=== PATIENT | female | born 1940 | race American Indian/Alaskan Native ===

== ENCOUNTER 2021-12-10 08:46 | Emergency (ER) | payer OTHER ==
[~2021-12-10] VITALS: Ht 165.1 cm; Wt 127.0 kg
[2021-12-10] MEDS ORDERED: MORPHINE SULFATE 4 MG/ML CPJ (NOT FOR IM USE) IV ONE ×2 (09:00→11:30)
[2021-12-10 09:15] LABS: BASOPHILS % 0.5 % (0.0-2.0); EOSINOPHILS % 0.6 % (0.0-5.0); HEMATOCRIT. 34.7 % (42.0-52.0); LYMPHOCYTES % 15.2 % (20.0-50.0); MEAN CORPUSCULAR HEMOGLOBIN 28.8 pg (28.0-32.0); MEAN CORPUSCULAR VOLUME 91.3 fL (80.0-94.0); MEAN PLATELET VOLUME 7.8 fl (7.4-10.4); MONOCYTES % 2.9 % (2.0-8.0); NEUTROPHILS % 80.8 % (40.0-76.0); PLATELET 186 x1000/uL (130-400); RED BLOOD CELL COUNT 3.81 mill/uL (4.7-6.1); RED CELL DISTRIBUTION WIDTH 17.2 % (11.6-14.6)
[2021-12-10] MEDS ORDERED: SODIUM CHLORIDE 0.9% 1,000 ML IV ONE (09:15)
[2021-12-10 09:28] LABS: CHLORIDE 109 mEq/L (98-107)
[2021-12-10] MEDS ORDERED: PHYTONADIONE 10 MG in DEXTROSE 5% WATER 50 ML SUBCUT ONE (09:30)
[2021-12-10 09:32] LABS: PROTHROMBIN TIME 70.7 sec (9.6-11.0)
[2021-12-10 09:38] LABS: INR 7.8
[2021-12-10] MEDS ORDERED: PHYTONADIONE 10 MG in DEXTROSE 5% WATER 50 ML IV NR (09:45)
[2021-12-10] MEDS ORDERED: HUMAN PROTHROMBIN COMPLX (PCC) 500 UNITS VIAL IV ONE (09:45)
[2021-12-10] MEDS ORDERED: ONDANSETRON HCL 4MG/2ML INJ IV ONE (11:30)
[2021-12-10 11:42] LABS: HEMATOCRIT 40.3 % (36.0-48.0); HEMOGLOBIN 12.4 g/dL (12.0-16.0)
[2021-12-10] MEDS ORDERED: IOHEXOL-300 100 ML BOTTLE ONE (11:58)
[2021-12-10 14:10] VITALS: BP 109/67
== END 2021-12-10 14:11 | disposition short-term general hospital (02) ==
LOC: EDSEX 08:46 → ER 10:37 → CANBEDREQ 16:35
DX: S22.41XA Multiple fractures of ribs, right side, initial encounter for closed fracture (principal); W18.39XA Other fall on same level, initial encounter; Y93.89 Activity, other specified; Y92.89 Other specified places as the place of occurrence of the external cause; Y99.8 Other external cause status; J94.2 Hemothorax; R09.02 Hypoxemia; E78.00 Pure hypercholesterolemia, unspecified; I10 Essential (primary) hypertension; Z20.822 Contact with and (suspected) exposure to COVID-19
CPT/HCPCS: 36415; 71045; 71260; 74177; 80053; 83690; 83880; 84484; 85014; 85018; 85025; 85610; 86850; 86900; 86901; 86920; 86927; 87426; 93005; 96365; 96375; 96376; 99291; C9132; C9803; J2270; J2405; J3430; J7030; J7060; Q9967; P9016; P9017